=== PATIENT | male | born 1995 | race African-American/Black ===

== ENCOUNTER 2017-06-13 10:58 | Emergency (ER) | payer OTHER ==
[2017-06-13 11:43] VITALS: TEMP 98.3; BMI 20.9
--- NOTE | 2017-06-13 12:08 | PDOC ---
History of Present Illness <Carmel Perry - Last Filed: 06/13/17 14:43> - History of Present Illness Initial Comments: 06/13/17 11:59 21 M with h/o pancreatitis presents to ER with N/V and abdominal pain. Pt states that last night, he ate a burger and had about half a shot of tequila. He subsequently began to feel very ill, with abdominal cramps and nausea. He went to take a cold shower, which he states usually helps. Pt reports that he then began to feel very lightheaded and fainted in the shower, hitting the back of his head against the floor. Pt states that he awoke shortly after and began to vomit. He denies any significant headache or neck pain. Pt states that his symptoms are similar to when he had pancreatitis previously but not as severe. Denies F/C. Denies diarrhea/constipation. Denies CP/SOB/palpitations. <Bimal Leyva - Last Filed: 06/15/17 18:22> - General Chief Complaint: Nausea/Vomiting Stated Complaint: vomiting Time Seen by Provider: 06/13/17 11:41 Past History <Carmel Perry - Last Filed: 06/13/17 14:43> - Past Medical History COPD: No GI Disorders: Yes (gerd, gastritis,gastrophoresis.) - Immunization History Immunization Up to Date: Yes - Suicide/Smoking/Psychosocial Hx Smoking Status: No Smoking History: Never smoked Have you smoked in the past 12 months: No Number of Cigarettes Smoked Daily: 2 Information on smoking cessation initiated: No Hx Alcohol Use: No Drug/Substance Use Hx: No Substance Use Type: None, Marijuana <Bimal Leyva - Last Filed: 06/15/17 18:22> - Past Medical History Allergies/Adverse Reactions: Allergies Allergy/AdvReac Type Severity Reaction Status Date / Time No Known Allergies Allergy Verified 06/13/17 11:43 Home Medications: Ambulatory Orders Esomeprazole Magnesium [Nexium 24Hr] 20 mg PO DAILY #30 capsule. 06/13/17 NK [No Known Home Medication] 06/13/17 Omeprazole 20 mg PO DAILY #30 tablet. 06/13/17 Abd/GI Specific PMHX - Complaint Specific PMHX Colitis: No Diverticulitis: No Gall Bladder Disease: No GERD: No Hepatitis: No Irritable Bowel Synd (IBS): No Pancreatitis: No GI Ulcer Disease: No <Bimal Leyva - Last Filed: 06/15/17 18:22> Review of Systems - Review of Systems Comments:: 06/13/17 12:08 "GENERAL/CONSTITUTIONAL: No fever or chills HEAD, EYES, EARS, NOSE AND THROAT: No change in vision. No ear pain or discharge. No sore throat. CARDIOVASCULAR: No chest pain or shortness of breath. RESPIRATORY: No cough, wheezing, or hemoptysis. GASTROINTESTINAL: + nausea and vomiting, diffuse abdominal cramps, no diarrhea or constipation. GENITOURINARY: No dysuria, frequency, or change in urination. MUSCULOSKELETAL: No joint or muscle swelling or pain. No neck or back pain. SKIN: No rash NEUROLOGIC: No headache, vertigo, or change in strength/sensation. ENDOCRINE: No increased thirst. No abnormal weight change. HEMATOLOGIC/LYMPHATIC: No anemia, easy bleeding, or history of blood clots. ALLERGIC/IMMUNOLOGIC: No hives or skin allergy. " <Bimal Leyva - Last Filed: 06/15/17 18:22> *Physical Exam - Vital Signs Last Vital Signs Temp Pulse Resp BP Pulse Ox 98.3 F 70 18 130/89 100 06/13/17 10:58 06/13/17 10:58 06/13/17 10:58 06/13/17 10:58 06/13/17 10:58 <OrlandoCarmel - Last Filed: 06/13/17 14:43> - Vital Signs Last Vital Signs Temp Pulse Resp BP Pulse Ox 98.3 F 70 18 130/89 100 06/13/17 10:58 06/13/17 10:58 06/13/17 10:58 06/13/17 10:58 06/13/17 10:58 - Physical Exam Comments: 06/13/17 12:10 "GENERAL: Awake, alert, and fully oriented, in no acute distress HEAD: No signs of trauma EYES: PERRLA, EOMI, sclera anicteric, conjunctiva clear ENT: Auricles normal inspection, hearing grossly normal, nares patent, oropharynx clear without exudates. Moist mucosa NECK: Nontender, no stepoffs, Normal ROM, supple, no lymphadenopathy, JVD, or masses LUNGS: Breath sounds equal, clear to auscultation bilaterally. No wheezes, and no crackles HEART: Regular rate and rhythm, normal S1 and S2, no murmurs, rubs or gallops ABDOMEN: +epigastric TTP, No guarding, no rebound. No masses EXTREMITIES: Normal range of motion, no edema. No clubbing or cyanosis. No cords, erythema, or tenderness NEUROLOGICAL: Cranial nerves II through XII intact. 5/5 strength and sensation in all extremities, Normal speech, normal gait SKIN: Warm, Dry, normal turgor, no rashes or lesions noted. " <Bimal Leyva - Last Filed: 06/15/17 18:22> ED Treatment Course - LABORATORY CBC & Chemistry Diagram: 06/13/17 13:19 06/13/17 13:19 - ADDITIONAL ORDERS Additional order review: Laboratory Results 06/13/17 06/13/17 13:19 13:19 Sodium 144 Potassium 3.4 L Chloride 108 H Carbon Dioxide 27 Anion Gap 9 BUN 21 H Creatinine 1.2 Creat Clearance w eGFR > 60 Random Glucose 76 Calcium 9.4 Total Bilirubin 1.6 H D AST 29 ALT 27 Alkaline Phosphatase 65 D Creatine Kinase 914 H Troponin I < 0.02 Total Protein 7.6 Albumin 4.7 Lipase 107 06/13/17 13:19 RBC 4.56 MCV 83.4 MCHC 32.3 RDW 13.7 MPV 10.0 Neutrophils % 77.0 Lymphocytes % 14.0 D Monocytes % 7.4 Eosinophils % 0.8 Basophils % 0.8 - RADIOLOGY Radiograph Interpretation: 06/13/17 14:[address] as reviewed by Dr. Enamorado reports chronic sinusitis. - Medications Given in the ED: ED Medications Discontinued Medications Generic Name Dose Route Start Last Admin Trade Name Freq PRN Reason Stop Dose Admin Al Hydroxide/Mg Hydroxide 30 ml 06/13/17 12:24 06/13/17 13:15 Mylanta Oral Suspension - PO 06/13/17 12:25 30 ml ONCE ONE Administration Famotidine/Sodium Chloride 20 mg in 50 mls @ 100 mls/hr 06/13/17 12:24 13:15 Pepcid 20 Mg Premixed Ivpb - IVPB 06/13/17 12:53 100 mls/hr ONCE ONE Administration Sodium Chloride 1,000 mls @ 1,000 mls/hr 06/13/17 12:24 06/13/17 13:15 Normal Saline - IV 06/13/17 13:23 1,000 mls/hr ASDIR STA Administration Ondansetron HCl 4 mg 06/13/17 12:24 06/13/17 13:15 Zofran Injection IVPB 06/13/17 12:25 4 mg ONCE ONE Administration <Carmel Perry - Last Filed: 06/13/17 14:43> - LABORATORY CBC & Chemistry Diagram: 06/13/17 13:19 06/13/17 13:19 - RADIOLOGY Radiology Studies Ordered: Category Date Time Status HEAD CT WITHOUT CONTRAST [CT] Stat CT Scan 06/13/17 11:52 Ordered <Bimal Leyva - Last Filed: 06/15/17 18:22> Medical Decision Making - Medical Decision Making 06/13/17 12:10 21 M with N/V and epigastric pain, concerning for recurrent pancreatitis. Also consider gastritis vs gastroenteritis. Pt also had syncopal episode, likely vasovagal in the context of vomiting. Pt without symptoms concerning for cardiac syncope. - Labs, lipase - EKG - CTH for headstrike and vomiting 06/13/17 15:53 CBC,CMP WBC 5.6 K/mm3 (4.0-10.0) D 06/13/17 13:19 RBC 4.56 M/mm3 (4.00-5.60) 06/13/17 13:19 Hgb 12.3 GM/dL (11.7-16.9) 06/13/17 13:19 Hct 38.1 % (35.4-49) 06/13/17 13:19 MCV 83.4 fl (80-96) 06/13/17 13:19 MCH 26.9 pg (25.7-33.7) 06/13/17 13:19 MCHC 32.3 g/dl (32.0-35.9) 06/13/17 13:19 RDW 13.7 % (11.9-15.9) 06/13/17 13:19 Plt Count 131 K/MM3 (134-434) L 06/13/17 13:19 MPV 10.0 fl (7.5-11.1) 06/13/17 13:19 Neutrophils % 77.0 % (42.8-82.8) 06/13/17 13:19 Lymphocytes % 14.0 % (8-40) D 06/13/17 13:19 Monocytes % 7.4 % (3.8-10.2) 06/13/17 13:19 Eosinophils % 0.8 % (0-4.5) 06/13/17 13:19 Basophils % 0.8 % (0-2.0) 06/13/17 13:19 Sodium 144 mmol/L (136-145) 06/13/17 13:19 Potassium 3.4 mmol/L (3.5-5.1) L 06/13/17 13:19 Chloride 108 mmol/L (98-107) H 06/13/17 13:19 Carbon Dioxide 27 mmol/L (21-32) 06/13/17 13:19 Anion Gap 9 (8-16) 06/13/17 13:19 BUN 21 mg/dL (7-18) H 06/13/17 13:19 Creatinine 1.2 mg/dL (0.7-1.3) 06/13/17 13:19 Creat Clearance w eGFR > 60 (>60) 06/13/17 13:19 Random Glucose 76 mg/dL (74-106) 06/13/17 13:19 Calcium 9.4 mg/dL (8.5-10.1) 06/13/17 13:19 Total Bilirubin 1.6 mg/dL (0.2-1.0) H D 06/13/17 13:19 AST 29 U/L (15-37) 06/13/17 13:19 ALT 27 U/L (12-78) 06/13/17 13:19 Alkaline Phosphatase 65 U/L (45-117) D 06/13/17 13:19 Creatine Kinase 914 IU/L (39-308) H 06/13/17 13:19 Creatine Kinase Index 0.3 % (0.0-5.0) 06/13/17 13:19 CK-MB (CK-2) 3.351 ng/mL (0.5-3.6) 06/13/17 13:19 Troponin I < 0.02 ng/ml (0.00-0.05) 06/13/17 13:19 Total Protein 7.6 g/dl (6.4-8.2) 06/13/17 13:19 Albumin 4.7 g/dl (3.4-5.0) 06/13/17 13:19 Lipase 107 U/L (73-393) 06/13/17 13:19 Labs unremarkable. Pt reports improvement in pain s/p meds. Denies any nausea or vomiting at this time. Pt with benign abdominal exam. Tolerating PO. Pt well appearing with normal vitals. Clinically stable for DC. I discussed the physical exam findings, ancillary test results and final diagnoses with the patient. I answered all of the patient's questions. The patient was satisfied with the care received and felt comfortable with the discharge plan and treatment plan. The patient agrees to follow up with the primary care physician within 24-72 hours. <Bimal Leyva - Last Filed: 06/15/17 18:22> *DC/Admit/Observation/Transfer - Attestations Scribe Attestion: 06/13/17 14:45 Documentation prepared by Carmel Perry, acting as outside medical sales representative for Bimal Leyva MD. <Carmel Perry - Last Filed: 06/13/17 14:43> - Attestations Physician Attestion: 06/13/17 15:59 I, Dr. Bimal Leyva MD, attest that this document has been prepared under my direction and personally reviewed by me in its entirety. I further attest, that it accurately reflects all work, treatment, procedures and medical decision -making performed by me. <Bimal Leyva - Last Filed: 06/15/17 18:22> Diagnosis at time of Disposition: Acute gastritis - Discharge Dispostion Disposition: HOME Condition at time of disposition: Good - Prescriptions Prescriptions: Esomeprazole Magnesium [Nexium 24Hr] 20 mg PO DAILY #30 capsule. Omeprazole 20 mg PO DAILY #30 tablet.dr - Referrals Referrals: Abhi Fields MD [Primary Care Provider] - Denilson Pearson MD [Staff Physician] - - Patient Instructions Printed Discharge Instructions: DI for Gastritis Additional Instructions: Call the number provided to make an appointment with a acute care occupational therapist. You will need an endoscopy to further evaluate your abdominal pain. 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 Avoid eating spicy, acidic, or greasy foods, as these may worsen your symptoms. If you experience worsening pain, vomiting, or any other concerning symptoms, return to the ER immediately. Otherwise follow up with your primary doctor within 1 week. - Post Discharge Activity
[2017-06-13] MEDS ORDERED: SODIUM CHLORIDE 1,000 ML IV STA (12:24)
[2017-06-13] MEDS ORDERED: FAMOTIDINE 20 MG/50 ML IVPB 20 MG/50 ML MG IVPB ONE ×2 (12:24→12:56)
[2017-06-13] MEDS ORDERED: MAG HYDROX/AL HYDROX/SIMETH 30 ML UNIT-DOSE CUP PO ONE (12:24)
[2017-06-13] MEDS ORDERED: ONDANSETRON 4 MG/2 ML VIAL IVPB ONE (12:24)
[2017-06-13] MEDS ORDERED: MAG HYDROX/AL HYDROX/SIMETH 30 ML UNIT-DOSE CUP ONE ×2 (12:55→12:57)
[2017-06-13] MEDS ORDERED: ONDANSETRON 4 MG/2 ML VIAL ONE (12:55)
[2017-06-13 13:45] LABS: BASO % 0.8 % (0-2.0); EOS % 0.8 % (0-4.5); HEMATOCRIT 38.1 % (35.4-49); HEMOGLOBIN 12.3 GM/dL (11.7-16.9); MCH 26.9 pg (25.7-33.7); MCHC 32.3 g/dl (32.0-35.9); MEAN CELL VOLUME 83.4 fl (80-96); MONO % 7.4 % (3.8-10.2); PLATELET COUNT 131 K/MM3 (134-434); RBC 4.56 M/mm3 (4.00-5.60); RDW 13.7 % (11.9-15.9); WHITE BLOOD COUNT 5.6 K/mm3 (4.0-10.0)
[2017-06-13 14:28] LABS: ALBUMIN 4.7 g/dl (3.4-5.0); ANION GAP 9 (8-16); BLOOD UREA NITROGEN 21 mg/dL (7-18); CALCIUM 9.4 mg/dL (8.5-10.1); CHLORIDE 108 mmol/L (98-107); CO2 27 mmol/L (21-32); CREATININE 1.2 mg/dL (0.7-1.3); GLUCOSE,RANDOM 76 mg/dL (74-106); LIPASE 107 U/L (73-393); POTASSIUM 3.4 mmol/L (3.5-5.1); SGOT/AST 29 U/L (15-37); SGPT/ALT 27 U/L (12-78); SODIUM 144 mmol/L (136-145)
[2017-06-13 14:29] LABS: ALK PHOS 65 U/L (45-117); BILIRUBIN,TOTAL 1.6 mg/dL (0.2-1.0); TOT PROT 7.6 g/dl (6.4-8.2)
[2017-06-13 17:10] VITALS: BP 124/74; PULSE 57
--- NOTE | 2017-06-14 12:38 | EKG ---
Test Reason : Blood Pressure : / mmHG Vent. Rate : 048 BPM Atrial Rate : 048 BPM P-R Int : 166 ms QRS Dur : 086 ms QT Int : 430 ms P-R-T Axes : 045 047 043 degrees QTc Int : 384 ms SINUS BRADYCARDIA NONSPECIFIC ST ABNORMALITY ABNORMAL ECG WHEN COMPARED WITH ECG OF 06-NOV-2013 09:11, NO SIGNIFICANT CHANGE WAS FOUND Confirmed by BENTON METZGER MD ([id number]) on 06/14/2017 12:37:46 PM Referred By: Confirmed By:BENTON METZGER MD
== END 2017-06-13 17:10 | disposition home or self-care (01) ==
LOC: JER 10:58
PROC: 3E033GC Introduction of Other Therapeutic Substance into Peripheral Vein, Percutaneous Approach (ICD-10-PCS; principal; 2017-06-13)
DX: K29.00 Acute gastritis without bleeding (principal)
CPT/HCPCS: 36415; 70450-TC; 80053; 82550; 82553; 83690; 84484; 85025; 93005; 93010; 99283-25

== ENCOUNTER 2017-07-22 23:12 | Emergency (ER) | payer OTHER ==
[2017-07-22 23:23] VITALS: BP 128/76; PULSE 67; TEMP 97.6; BMI 11.4
[2017-07-23] MEDS ORDERED: IBUPROFEN 600 MG TABLET (FP) PO ONE ×2 (00:03→00:26)
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
[2017-07-23 01:54] LABS: URINE APPEARANCE CLOUDY; URINE BILIRUBIN NEGATIVE (NEGATIVE); URINE BLOOD NEGATIVE (NEGATIVE); URINE COLOR YELLOW; URINE GLUCOSE (UA) NEGATIVE (NEGATIVE); URINE KETONE NEGATIVE (NEGATIVE); URINE LEUK ESTERASE 1+ (NEGATIVE); URINE NITRITE NEGATIVE (NEGATIVE); URINE PROTEIN NEGATIVE (NEGATIVE)
[2017-07-23 01:56] LABS: EPI CELLS RARE /HPF (FEW)
== END 2017-07-23 02:14 | disposition home or self-care (01) ==
LOC: JER 23:12
DX: M54.2 Cervicalgia (principal); V43.62XA Car passenger injured in collision with other type car in traffic accident, initial encounter; Y92.488 Other paved roadways as the place of occurrence of the external cause; Y93.89 Activity, other specified; Y99.8 Other external cause status
CPT/HCPCS: 71046-TC-FY; 72125-TC; 73090-TC-RT-FY; 73590-TC-RT-FY; 81003; 81015; 99283-25

== ENCOUNTER 2017-08-31 23:04 | Emergency (ER) | payer OTHER ==
[2017-08-31 23:26] VITALS: BP 109/77; PULSE 74; TEMP 97.8; BMI 26.9
[2017-09-01 00:04] LABS: BASO % 0.9 % (0-2.0); EOS % 4.6 % (0-4.5); HEMATOCRIT 37.3 % (35.4-49); HEMOGLOBIN 12.7 GM/dL (11.7-16.9); LYMPH % 31.6 % (8-40); MCH 28.3 pg (25.7-33.7); MCHC 34.1 g/dl (32.0-35.9); MEAN CELL VOLUME 83.1 fl (80-96); MEAN PLT VOLUME 9.8 fl (7.5-11.1); MONO % 5.5 % (3.8-10.2); NEUT % 57.4 % (42.8-82.8); PLATELET COUNT 136 K/MM3 (134-434); RBC 4.49 M/mm3 (4.00-5.60); RDW 13.4 % (11.9-15.9); WHITE BLOOD COUNT 5.1 K/mm3 (4.0-10.0)
[2017-09-01] MEDS ORDERED: ONDANSETRON 4 MG/2 ML VIAL ONE (00:10)
--- NOTE | 2017-09-01 00:31 | PDOC ---
History of Present Illness - General History Source: Patient Exam Limitations: No Limitations - History of Present Illness Initial Comments: 09/01/17 00:48 The patient is a 22 year old male, with a significant past medical history of gastritis, who presents to the emergency department with, one day of emesis and diarrhea. The patient states that over the past 24 hours he has experienced 6 episodes of vomiting (non bloody, non bilious) and 3 episodes of diarrhea ( denies melena or hematochezia). The patient denies any sick contacts. He denies any recent fevers, chills, headache or dizziness. He denies any recent chest pain or shortness of breath. He denies any recent dysuria, frequency, urgency or hematuria. Allergies: NKA <James Leslie - Last Filed: 09/01/17 00:48> <Amber Monroy - Last Filed: 09/01/17 02:23> - General Chief Complaint: Nausea/Vomiting Stated Complaint: VOMITING Time Seen by Provider: 08/31/17 23:38 Past History <James Leslie - Last Filed: 09/01/17 00:48> - Past Medical History COPD: No GI Disorders: Yes (gerd, gastritis,gastrophoresis.) - Immunization History Immunization Up to Date: Yes - Suicide/Smoking/Psychosocial Hx Smoking Status: No Smoking History: Current every day smoker Have you smoked in the past 12 months: Yes Number of Cigarettes Smoked Daily: 2 Information on smoking cessation initiated: No Hx Alcohol Use: No Drug/Substance Use Hx: Yes (marijuana) Substance Use Type: None, Marijuana <Amber Monroy - Last Filed: 09/01/17 02:23> - Past Medical History Allergies/Adverse Reactions: Allergies Allergy/AdvReac Type Severity Reaction Status Date / Time No Known Allergies Allergy Verified 08/31/17 23:23 Home Medications: Ambulatory Orders Acetaminophen [Tylenol] 650 mg PO PRN 09/01/17 Ondansetron [Zofran Odt -] 4 mg SL TID PRN #12 od.tablet 09/01/17 Abd/GI Specific PMHX - Complaint Specific PMHX Colitis: No Diverticulitis: No Gall Bladder Disease: No GERD: No Hepatitis: No Irritable Bowel Synd (IBS): No Pancreatitis: No GI Ulcer Disease: No <Amber Monroy - Last Filed: 09/01/17 02:23> Review of Systems - Review of Systems Comments:: 09/01/17 00:49 CONSTITUTIONAL: Absent: fever, no chills, no fatigue EYES: Absent: visual changes ENT: Absent: ear pain, no sore throat CARDIOVASCULAR: Absent: chest pain, no palpitations RESPIRATORY: Absent: cough, no SOB GI: Present: +Nausea. +Vomiting. +Diarrhea. Absent: abdominal pain, no constipation GENITOURINARY: Absent: dysuria, no frequency, no hematuria MUSKULOSKELETAL: Absent: back pain, no arthralgia, no myalgia SKIN: Absent: rash NEURO: Absent: headache <James Leslie - Last Filed: 09/01/17 00:48> *Physical Exam - Vital Signs Last Vital Signs Temp Pulse Resp BP Pulse Ox 97.8 F 74 16 109/77 99 08/31/17 23:24 08/31/17 23:24 08/31/17 23:24 08/31/17 23:24 08/31/17 23:24 - Physical Exam Comments: 09/01/17 00:49 GENERAL: Well-appearing, well-nourished. No apparent distress. HEENT: +Nasal congestion. Normocephalic, atraumatic. PERRL, EOM intact. CARDIOVASCULAR: Normal S1, S2. Regular rate and rhythm. PULMONARY: Clear to auscultation bilaterally. ABDOMEN: Soft, non-distended, non-tender. No rebound or guarding. EXTREMITIES: Normal ROM in all four extremities. No gross deformities. SKIN: Warm, dry. No rash NEUROLOGICAL: No focal neurological deficits. <James Leslie - Last Filed: 09/01/17 00:48> - Vital Signs Last Vital Signs Temp Pulse Resp BP Pulse Ox 97.8 F 74 16 109/77 99 08/31/17 23:24 08/31/17 23:24 08/31/17 23:24 08/31/17 23:24 08/31/17 23:24 <Amber Monroy - Last Filed: 09/01/17 02:23> ED Treatment Course - LABORATORY CBC & Chemistry Diagram: 08/31/17 23:59 08/31/17 23:59 - ADDITIONAL ORDERS Additional order review: 08/31/17 23:59 RBC 4.49 MCV 83.1 MCHC 34.1 RDW 13.4 MPV 9.8 Neutrophils % 57.4 D Lymphocytes % 31.6 D Monocytes % 5.5 Eosinophils % 4.6 H D Basophils % 0.9 <James Leslie - Last Filed: 09/01/17 00:48> - LABORATORY CBC & Chemistry Diagram: 08/31/17 23:59 08/31/17 23:59 - ADDITIONAL ORDERS Additional order review: 08/31/17 23:59 RBC 4.49 MCV 83.1 MCHC 34.1 RDW 13.4 MPV 9.8 Neutrophils % 57.4 D Lymphocytes % 31.6 D Monocytes % 5.5 Eosinophils % 4.6 H D Basophils % 0.9 <Amber Monroy - Last Filed: 09/01/17 02:23> Medical Decision Making - Medical Decision Making 09/01/17 02:21 22-year-old male with epigastric discomfort, nausea and vomiting. He does NOT have any focal abdominal tenderness -pt symptoms improved after zofran and IVF <Amber Monroy - Last Filed: 09/01/17 02:23> *DC/Admit/Observation/Transfer - Attestations Scribe Attestion: 09/01/17 00:50 Documentation prepared by James Leslie, acting as medical i d sales for Amber Monroy MD. <James Leslie - Last Filed: 09/01/17 00:48> <Amber Monroy - Last Filed: 09/01/17 02:23> Diagnosis at time of Disposition: Vomiting and diarrhea - Discharge Dispostion Disposition: HOME Condition at time of disposition: Stable - Prescriptions Prescriptions: Ondansetron [Zofran Odt -] 4 mg SL TID PRN #12 od.tablet PRN Reason: Nausea And/Or Vomiting - Patient Instructions Printed Discharge Instructions: DI for Viral Gastroenteritis -- Adult Additional Instructions: please advance your diet as tolerated city superintendent your medication at your pharmacy return for any worsening symptoms
[2017-09-01 00:43] LABS: ALBUMIN 4.5 g/dl (3.4-5.0); ALK PHOS 67 U/L (45-117); ANION GAP 12 (8-16); BILIRUBIN,TOTAL 1.3 mg/dL (0.2-1.0); BLOOD UREA NITROGEN 18 mg/dL (7-18); CALCIUM 9.2 mg/dL (8.5-10.1); CHLORIDE 104 mmol/L (98-107); CO2 25 mmol/L (21-32); CREATININE 1.2 mg/dL (0.7-1.3); GLUCOSE,RANDOM 83 mg/dL (74-106); POTASSIUM 3.4 mmol/L (3.5-5.1); SGOT/AST 28 U/L (15-37); SGPT/ALT 30 U/L (12-78); SODIUM 141 mmol/L (136-145); TOT PROT 7.5 g/dl (6.4-8.2)
[2017-09-01 00:48] LABS: LIPASE 238 U/L (73-393)
== END 2017-09-01 01:09 | disposition home or self-care (01) ==
LOC: JER 23:04
DX: A08.4 Viral intestinal infection, unspecified (principal); B97.89 Other viral agents as the cause of diseases classified elsewhere
CPT/HCPCS: 36415; 80053; 83690; 85025; 99282-25

== ENCOUNTER 2017-09-03 19:16 | Emergency (ER) | payer OTHER ==
[2017-09-03 19:21] VITALS: BMI 23.7
--- NOTE | 2017-09-03 20:01 | PDOC ---
History of Present Illness - General Chief Complaint: Nausea/Vomiting Stated Complaint: PAIN Time Seen by Provider: 09/03/17 19:42 History Source: Patient Exam Limitations: No Limitations - History of Present Illness Travel History: No Initial Comments: 09/04/17 03:28 Best Contact: Pmhx:Asthma/never intubated/admitted, gastritis Pshx: Endoscopy 2014, right forearm tendon repair 2014, left patellar tendon repair 2011 Allergies: NKDA 22-year-old male presents to the emergency department complaining of nausea, vomiting since approximately 10 AM this morning after having crackers. Patient denies bilious up blood he vomited. There are no alleviating factors. Symptoms are also not exacerbating. Patient denies fever, chills, headache/dizziness/ lightheadedness, facial pains, neck pain/stiffness, back pains, chest pain, shortness of breath, abdominal pains, flank pains, urinary symptoms: Frequency/ urgency/hesitancy, hematuria. Timing/Duration: reports: intermittent Past History - Past Medical History Allergies/Adverse Reactions: Allergies Allergy/AdvReac Type Severity Reaction Status Date / Time No Known Allergies Allergy Verified 09/03/17 19:18 Home Medications: Ambulatory Orders Ciprofloxacin [Cipro -] 500 mg PO Q12H #20 tablet 09/04/17 metroNIDAZOLE [Flagyl -] 500 mg PO DAILY #10 tablet 09/04/17 COPD: No GI Disorders: Yes (gerd, gastritis,gastrophoresis.) - Immunization History Immunization Up to Date: Yes - Suicide/Smoking/Psychosocial Hx Smoking Status: No Smoking History: Current every day smoker Have you smoked in the past 12 months: Yes Number of Cigarettes Smoked Daily: 3 Information on smoking cessation initiated: No Hx Alcohol Use: No Drug/Substance Use Hx: No Substance Use Type: None, Marijuana Abd/GI Specific PMHX - Complaint Specific PMHX Colitis: No Diverticulitis: No Gall Bladder Disease: No GERD: No Hepatitis: No Irritable Bowel Synd (IBS): No Pancreatitis: No GI Ulcer Disease: No Review of Systems - Review of Systems Able to Perform ROS?: Yes Comments:: 09/04/17 03:32 CONSTITUTIONAL: Absent: fever, chills, diaphoresis, generalized weakness, malaise, loss of appetite HEENT: Absent: rhinorrhea, nasal congestion, throat pain, throat swelling, difficulty swallowing, mouth swelling, ear pain, eye pain, visual Changes CARDIOVASCULAR: Absent: chest pain, loss of consciousness, palpitations, irregular heart rate, peripheral edema RESPIRATORY: Absent: cough, shortness of breath, dyspnea with exertion, orthopnea, wheezing, stridor, hemoptysis GASTROINTESTINAL: +n/V Absent: abdominal pain, abdominal distension, diarrhea, constipation, melena, hematochezia GENITOURINARY: Absent: dysuria, frequency, urgency, hesitancy, hematuria, flank pain, genital pain MUSCULOSKELETAL: Absent: myalgia, arthralgia, joint swelling SKIN: Absent: rash, itching, pallor Is the patient limited Spanish proficient: No *Physical Exam - Vital Signs Last Vital Signs Temp Pulse Resp BP Pulse Ox 75 18 129/71 100 09/03/17 19:17 09/03/17 19:17 09/03/17 19:17 09/03/17 19:17 - Physical Exam Comments: 09/04/17 03:32 GENERAL: Well developed, well nourished. Awake and alert. No acute distress. HEENT: Normocephalic, atraumatic. PERRLA, EOMI. No conjunctival pallor. Sclera are non- icteric. Moist mucous membranes. Oropharynx is clear. NECK: Supple. Full ROM. No JVD. Carotid pulses 2+ and symmetric, without bruits. No thyromegaly. No lymphadenopathy. CARDIOVASCULAR: Regular rate and rhythm. No murmurs, rubs, or gallops. Distal pulses are 2+ and symmetric. PULMONARY: No evidence of respiratory distress. Lungs clear to auscultation bilaterally. No wheezing, rales or rhonchi. ABDOMINAL: Soft. Non-tender. Non-distended. No rebound or guarding. No organomegaly. Normoactive bowel sounds. MUSCULOSKELETAL Normal range of motion at all joints. No bony deformities or tenderness. No CVA tenderness. EXTREMITIES: No cyanosis. No clubbing. No edema. No calf tenderness. SKIN: Warm and dry. Normal capillary refill. No rashes. No jaundice. ED Treatment Course - LABORATORY CBC & Chemistry Diagram: 09/03/17 20:00 09/03/17 21:11 - RADIOLOGY Radiograph Interpretation: 09/04/17 03:32 CAT scan abdomen and pelvis with by mouth and IV contrast Impression: No evidence of bowel obstruction or acute appendicitis Circumferentially prominent wall in the sigmoid colon and rectum could be secondary to under distention and/for a mild inflammatory or infectious proctocolitis. Apparent circumferential wall thickening in the urinary bladder may be attributed to some combination of underdistention and/or cystitis *DC/Admit/Observation/Transfer Diagnosis at time of Disposition: Proctitis - Discharge Dispostion Disposition: HOME Condition at time of disposition: Stable Admit: No - Prescriptions Prescriptions: Ciprofloxacin [Cipro -] 500 mg PO Q12H #20 tablet metroNIDAZOLE [Flagyl -] 500 mg PO DAILY #10 tablet - Referrals Referrals: Abhi Fields MD [Primary Care Provider] - Micheal Samuel MD [Staff Physician] - Uriel Cooney MD [Staff Physician] - - Patient Instructions Additional Instructions: It is very important that you follow up with the coater hand and urologist. Review do not have one, I have listed 1 of each specialist on your discharge sheet Take the antibiotics until completion as prescribed Return back to the emergency department for severe/persistent or worsening symptoms - Post Discharge Activity
[2017-09-03] MEDS ORDERED: SODIUM CHLORIDE 1,000 ML IV STA (20:02)
--- NOTE | 2017-09-03 20:13 | PDOC ---
*Physical Exam - Vital Signs Last Vital Signs Temp Pulse Resp BP Pulse Ox 75 18 129/71 100 09/03/17 19:17 09/03/17 19:17 09/03/17 19:17 09/03/17 19:17 Medical Decision Making - Medical Decision Making 09/03/17 20:13 Pt seen by the Advanced Practice Provider under my direct supervision Ancillary studies reviewed I agree with plan as outlined by the Advanced Practice Provider LANCE Turpin *DC/Admit/Observation/Transfer - Referrals Referrals: Abhi Fields MD [Primary Care Provider] - - Patient Instructions - Post Discharge Activity
[2017-09-03 20:24] LABS: BASO % 0.5 % (0-2.0); HEMATOCRIT 38.9 % (35.4-49); HEMOGLOBIN 13.2 GM/dL (11.7-16.9); LYMPH % 29.8 % (8-40); MCH 28.2 pg (25.7-33.7); MCHC 33.9 g/dl (32.0-35.9); MEAN CELL VOLUME 83.3 fl (80-96); MEAN PLT VOLUME 10.2 fl (7.5-11.1); MONO % 6.5 % (3.8-10.2); NEUT % 61.2 % (42.8-82.8); PLATELET COUNT 158 K/MM3 (134-434); RBC 4.67 M/mm3 (4.00-5.60); RDW 13.2 % (11.9-15.9); WHITE BLOOD COUNT 6.1 K/mm3 (4.0-10.0)
[2017-09-03 20:48] LABS: AMYLASE 132 U/L (25-115); LIPASE 178 U/L (73-393)
[2017-09-03] MEDS ORDERED: ONDANSETRON 4 MG/2 ML VIAL IVPUSH ONE (21:48)
[2017-09-03 21:49] LABS: ALBUMIN 4.3 g/dl (3.4-5.0); ALK PHOS 63 U/L (45-117); ANION GAP 5 (8-16); BILIRUBIN,TOTAL 1.1 mg/dL (0.2-1.0); BLOOD UREA NITROGEN 17 mg/dL (7-18); CALCIUM 8.6 mg/dL (8.5-10.1); CHLORIDE 109 mmol/L (98-107); CO2 28 mmol/L (21-32); CREATININE 1.3 mg/dL (0.7-1.3); GLUCOSE,RANDOM 76 mg/dL (74-106); POTASSIUM 3.4 mmol/L (3.5-5.1); SGOT/AST 24 U/L (15-37); SGPT/ALT 24 U/L (12-78); SODIUM 142 mmol/L (136-145); TOT PROT 7.1 g/dl (6.4-8.2)
[2017-09-03] MEDS ORDERED: ONDANSETRON 4 MG/2 ML VIAL ONE ×2 (21:49→22:27)
[2017-09-03] MEDS ORDERED: morphine CARPU-JECT 4 MG/1 ML DISP.SYRIN IVPUSH ONE (22:25)
[2017-09-03] MEDS ORDERED: ONDANSETRON 4 MG/2 ML VIAL IVPB ONE (22:25)
[2017-09-03] MEDS ORDERED: MORPHINE SULFATE 10 MG/1 ML *VIAL ONE (22:26)
[2017-09-04 00:43] VITALS: BP 138/79; PULSE 70
[2017-09-04 00:44] LABS: URINE APPEARANCE CLEAR; URINE COLOR STRAW
[2017-09-04 00:45] LABS: URINE BILIRUBIN NEGATIVE (<2.0 mg/dL); URINE BLOOD NEGATIVE (NEGATIVE); URINE GLUCOSE (UA) NEGATIVE (NEGATIVE); URINE KETONE TRACE (NEGATIVE)
[2017-09-04 00:46] LABS: URINE LEUK ESTERASE 2+ (NEGATIVE); URINE NITRITE NEGATIVE (NEGATIVE); URINE PROTEIN NEGATIVE (NEGATIVE); URINE UROBILINOGEN NORMAL mg/dL (0.2-1.0)
[2017-09-04 00:47] LABS: EPI CELLS RARE /HPF (FEW); URINE MUCUS RARE
[2017-09-04] MEDS ORDERED: CIPROFLOXACIN 500 MG TABLET (RESTRICTED TO ID) PO ONE (01:02)
[2017-09-04] MEDS ORDERED: metroNIDAZOLE 250 MG TABLET ONE (01:28)
[2017-09-04] MEDS ORDERED: metroNIDAZOLE 250 MG TABLET PO ONE (01:35)
== END 2017-09-04 01:33 | disposition home or self-care (01) ==
LOC: JER 19:16
PROC: 3E0337Z Introduction of Electrolytic and Water Balance Substance into Peripheral Vein, Percutaneous Approach (ICD-10-PCS; principal; 2017-09-03)
PROC: 3E033GC Introduction of Other Therapeutic Substance into Peripheral Vein, Percutaneous Approach (ICD-10-PCS; 2017-09-03)
PROC: 3E033NZ Introduction of Analgesics, Hypnotics, Sedatives into Peripheral Vein, Percutaneous Approach (ICD-10-PCS; 2017-09-03)
PROC: 3E033GC Introduction of Other Therapeutic Substance into Peripheral Vein, Percutaneous Approach (ICD-10-PCS; 2017-09-03)
DX: K62.89 Other specified diseases of anus and rectum (principal); Z87.19 Personal history of other diseases of the digestive system
CPT/HCPCS: 36415; 74177-TC; 80053; 81003; 81015; 82150; 83690; 85025; 87086; 99283-25; J7030

== ENCOUNTER 2021-08-29 14:26 | Emergency (ER) | payer OTHER ==
[2021-08-29 14:52] VITALS: TEMP 97.1; BMI 25.1
[2021-08-29] MEDS ORDERED: FAMOTIDINE 20 MG/50 ML IVPB 20 MG/50 ML MG IVPB ONE ×2 (15:24→15:34)
[2021-08-29] MEDS ORDERED: ONDANSETRON 4 MG/2 ML VIAL IVPUSH ONE (15:24)
[2021-08-29] MEDS ORDERED: ACETAMINOPHEN 1000 MG/100 ML BAG IVPB ONE (15:24)
[2021-08-29] MEDS ORDERED: SODIUM CHLORIDE 1,000 ML IV STA (15:24)
[2021-08-29] MEDS ORDERED: ACETAMINOPHEN INJECTION 100 ML IVPB ONE (15:33)
[2021-08-29] MEDS ORDERED: ONDANSETRON 4 MG/2 ML VIAL ONE (15:33)
[2021-08-29] MEDS ORDERED: LORazepam 1 MG TABLET PO ONE (16:04)
[2021-08-29] MEDS ORDERED: LORazepam 1 MG TABLET ONE (16:07)
[2021-08-29] MEDS ORDERED: METOCLOPRAMIDE HCL INJECTION 10 MG/2 ML VIAL IVPUSH ONE (16:22)
[2021-08-29 16:54] LABS: BASO % 0.3 % (0-2.0); EOS % 1.1 % (0-4.5); HEMATOCRIT 36.1 % (35.4-49); HEMOGLOBIN 12.2 GM/dL (11.7-16.9); LYMPH % 16.2 % (8-40); MCH 27.5 pg (25.7-33.7); MCHC 33.8 g/dl (32.0-35.9); MEAN CELL VOLUME 81.4 fl (80-96); MEAN PLT VOLUME 9.9 fl (7.5-11.1); MONO % 6.3 % (3.8-10.2); NEUT % 76.1 % (42.8-82.8); PLATELET COUNT 149 10^3/uL (134-434); RBC 4.43 M/mm3 (4.00-5.60); RDW 13.1 % (11.9-15.9); WHITE BLOOD COUNT 4.2 K/mm3 (4.0-10.0)
[2021-08-29 16:57] LABS: EPI CELLS 21 /uL (0-25.1); HYALINE CASTS 1 /uL (0-3.1); PH,URINE 5.5 (5.0-8.0); URINE APPEARANCE CLEAR; URINE BACTERIA 873 /uL (0-1359); URINE BILIRUBIN NEGATIVE (NEGATIVE); URINE COLOR YELLOW; URINE GLUCOSE (UA) NEGATIVE (NEGATIVE); URINE KETONE 1+ (NEGATIVE); URINE LEUK ESTERASE 2+ (NEGATIVE); URINE NITRITE NEGATIVE (NEGATIVE); URINE PROTEIN 1+ (NEGATIVE); URINE RBC 4 /uL (0-23.9); URINE WBC 186 /uL (0-25.8)
[2021-08-29 16:59] LABS: INR 1.14 (0.83-1.09); PROTHROMBIN TIME (PATIENT) 13.1 SEC (9.7-13.0)
[2021-08-29] MEDS ORDERED: METOCLOPRAMIDE HCL INJECTION 10 MG/2 ML VIAL ONE (17:01)
[2021-08-29 17:19] LABS: ALBUMIN 4.7 g/dl (3.4-5.0); BLOOD UREA NITROGEN 19.5 mg/dL (7-18); CALCIUM 9.8 mg/dL (8.5-10.1)
[2021-08-29 17:21] LABS: CREATININE 1.6 mg/dL (0.55-1.3)
[2021-08-29 17:23] LABS: BILIRUBIN,TOTAL 1.2 mg/dL (0.2-1)
[2021-08-29 18:11] VITALS: BP 122/78; PULSE 69
== END 2021-08-29 19:00 | disposition home or self-care (01) ==
LOC: JER 14:26
PROC: 3E033GC Introduction of Other Therapeutic Substance into Peripheral Vein, Percutaneous Approach (ICD-10-PCS; principal; 2021-08-29)
DX: R11.2 Nausea with vomiting, unspecified (principal)
CPT/HCPCS: 36415; 80053; 81003; 83690; 85025; 85610; 87086; 99284-25

== ENCOUNTER 2022-03-12 08:41 | Emergency (ER) | payer OTHER ==
[2022-03-12 08:55] VITALS: BMI 23.0
[2022-03-12] MEDS ORDERED: ONDANSETRON 4 MG/2 ML VIAL IVPUSH ONE (09:28)
[2022-03-12] MEDS ORDERED: ACETAMINOPHEN 1000 MG/100 ML BAG IVPB ONE (09:28)
[2022-03-12] MEDS ORDERED: SODIUM CHLORIDE 0.9% 500 ML INFUS.BAG IV ONE ×3 (09:28→13:20)
[2022-03-12] MEDS ORDERED: FAMOTIDINE 20 MG/50 ML IVPB 20 MG/50 ML MG IVPB ONE ×2 (09:28→09:57)
[2022-03-12] MEDS ORDERED: ACETAMINOPHEN INJECTION 100 ML IVPB ONE (09:56)
[2022-03-12] MEDS ORDERED: ONDANSETRON 4 MG/2 ML VIAL ONE (09:57)
[2022-03-12] MEDS ORDERED: LORazepam 2 MG/ML SDV VIAL IVPUSH ONE (10:17)
[2022-03-12] MEDS ORDERED: HALOPERIDOL LACTATE 5 MG/ML IM ONE ×2 (10:17→11:05)
[2022-03-12 11:29] LABS: BASO % 0.9 % (0-2.0); EOS % 3.5 % (0-4.5); HEMOGLOBIN 11.6 GM/dL (11.7-16.9); LYMPH % 35.3 % (8-40); MCH 27.2 pg (25.7-33.7); MCHC 33.1 g/dl (32.0-35.9); MEAN CELL VOLUME 82.1 fl (80-96); MEAN PLT VOLUME 9.3 fl (7.5-11.1); MONO % 5.3 % (3.8-10.2); PLATELET COUNT 158 10^3/uL (134-434); RBC 4.26 M/mm3 (4.00-5.60); RDW 13.5 % (11.9-15.9); WHITE BLOOD COUNT 4.4 K/mm3 (4.0-10.0)
[2022-03-12 11:55] LABS: CALCIUM 9.3 mg/dL (8.5-10.1)
[2022-03-12 11:56] LABS: ALBUMIN 4.4 g/dl (3.4-5.0); BLOOD UREA NITROGEN 23.7 mg/dL (7-18)
[2022-03-12 11:59] LABS: CREATININE 1.7 mg/dL (0.55-1.3)
[2022-03-12 12:00] LABS: TOT PROT 7.8 g/dl (6.4-8.2)
[2022-03-12 12:01] LABS: BILIRUBIN,TOTAL 0.9 mg/dL (0.2-1)
[2022-03-12 13:22] LABS: PH,URINE 5.5 (5.0-8.0); URINE APPEARANCE CLEAR; URINE BILIRUBIN NEGATIVE (NEGATIVE); URINE COLOR YELLOW; URINE GLUCOSE (UA) NEGATIVE (NEGATIVE); URINE KETONE NEGATIVE (NEGATIVE); URINE PROTEIN NEGATIVE (NEGATIVE)
[2022-03-12 13:23] LABS: EPI CELLS 15 /uL (0-25.1); HYALINE CASTS 1 /uL (0-3.1); URINE BACTERIA 355 /uL (0-1359); URINE LEUK ESTERASE NEGATIVE (NEGATIVE); URINE NITRITE NEGATIVE (NEGATIVE); URINE RBC 2 /uL (0-23.9); URINE UROBILINOGEN 0.2 mg/dL (0.2-1.0); URINE WBC 188 /uL (0-25.8)
[2022-03-12 15:11] LABS: CALCIUM 8.7 mg/dL (8.5-10.1)
[2022-03-12 15:12] LABS: BLOOD UREA NITROGEN 20.8 mg/dL (7-18)
[2022-03-12 15:15] LABS: CREATININE 1.6 mg/dL (0.55-1.3)
[2022-03-12 16:15] VITALS: BP 130/90; PULSE 60; RESP 16; TEMP 97.7
== END 2022-03-12 15:30 | disposition home or self-care (01) ==
LOC: JER 08:41
PROC: 3E023NZ Introduction of Analgesics, Hypnotics, Sedatives into Muscle, Percutaneous Approach (ICD-10-PCS; principal; 2022-03-12)
PROC: 3E033GC Introduction of Other Therapeutic Substance into Peripheral Vein, Percutaneous Approach (ICD-10-PCS; 2022-03-12)
PROC: 3E033GC Introduction of Other Therapeutic Substance into Peripheral Vein, Percutaneous Approach (ICD-10-PCS; 2022-03-12)
PROC: 3E033GC Introduction of Other Therapeutic Substance into Peripheral Vein, Percutaneous Approach (ICD-10-PCS; 2022-03-12)
PROC: 3E033GC Introduction of Other Therapeutic Substance into Peripheral Vein, Percutaneous Approach (ICD-10-PCS; 2022-03-12)
DX: R11.2 Nausea with vomiting, unspecified (principal)
CPT/HCPCS: 0241U-QW; 36415; 71045-TC-FY; 80048; 80053; 81003; 83690; 85025; 87086; 93005; 93010; 99285-25

== ENCOUNTER 2023-06-30 18:38 | Emergency (ER) | payer OTHER ==
[2023-06-30 18:47] VITALS: BP 113/72; PULSE 80; RESP 20; BMI 22.3
[2023-06-30 19:09] LABS: EPI CELLS >36 /uL (0-25.1); HYALINE CASTS 0 /uL (0-3.1); PH,URINE 5.5 (5.0-8.0); URINE APPEARANCE CLEAR; URINE BACTERIA 333 /uL (0-1359); URINE BILIRUBIN NEGATIVE (NEGATIVE); URINE COLOR YELLOW; URINE GLUCOSE (UA) NEGATIVE (NEGATIVE); URINE KETONE TRACE (NEGATIVE); URINE LEUK ESTERASE 1+ (NEGATIVE); URINE NITRITE NEGATIVE (NEGATIVE); URINE PROTEIN 1+ (NEGATIVE); URINE RBC 7 /uL (0-23.9); URINE WBC 97 /uL (0-25.8)
[2023-06-30] MEDS ORDERED: METOCLOPRAMIDE HCL INJECTION 10 MG/2 ML VIAL IVPUSH ONE (19:34)
[2023-06-30] MEDS ORDERED: LACTATED RINGERS SOLUTION 1000 ML INFUS.BAG IV ONE (19:34)
[2023-06-30] MEDS ORDERED: ACETAMINOPHEN 1000 MG/100 ML BAG IVPB ONE (19:34)
[2023-06-30] MEDS ORDERED: FAMOTIDINE 20 MG/50 ML IVPB 20 MG/50 ML MG IVPB ONE ×2 (19:40→19:51)
[2023-06-30] MEDS ORDERED: ACETAMINOPHEN INJECTION 100 ML IVPB ONE (19:50)
[2023-06-30] MEDS ORDERED: METOCLOPRAMIDE HCL INJECTION 10 MG/2 ML VIAL ONE (19:50)
[2023-06-30 20:22] LABS: BASO % 0.3 % (0-2.0); EOS % 0.5 % (0-4.5); HEMATOCRIT 34.2 % (35.4-49); HEMOGLOBIN 11.5 GM/dL (11.7-16.9); LYMPH % 10.9 % (8-40); MCH 27.5 pg (25.7-33.7); MCHC 33.6 g/dl (32.0-35.9); MEAN CELL VOLUME 81.9 fl (80-96); MEAN PLT VOLUME 8.6 fl (7.5-11.1); NEUT % 77.3 % (42.8-82.8); PLATELET COUNT 140 10^3/uL (134-434); RBC 4.18 M/mm3 (4.00-5.60); RDW 13.2 % (11.9-15.9); WHITE BLOOD COUNT 4.9 K/mm3 (4.0-10.0)
[2023-06-30 20:40] LABS: POTASSIUM 3.5 mmol/L (3.5-5.1)
[2023-06-30 20:42] LABS: ALBUMIN 4.2 g/dl (3.4-5.0); BLOOD UREA NITROGEN 15.8 mg/dL (7-18); MAGNESIUM 1.9 mg/dL (1.8-2.4)
[2023-06-30 20:45] LABS: CREATININE 2.1 mg/dL (0.55-1.3)
[2023-06-30 20:47] LABS: BILIRUBIN,TOTAL 0.7 mg/dL (0.2-1)
[2023-06-30 22:06] VITALS: TEMP 99.7
[2023-06-30 22:11] LABS: EPI CELLS 9 /uL (0-25.1); HYALINE CASTS 1 /uL (0-3.1); PH,URINE 5.5 (5.0-8.0); URINE APPEARANCE CLEAR; URINE BACTERIA 96 /uL (0-1359); URINE BILIRUBIN NEGATIVE (NEGATIVE); URINE COLOR YELLOW; URINE GLUCOSE (UA) NEGATIVE (NEGATIVE); URINE KETONE TRACE (NEGATIVE); URINE LEUK ESTERASE NEGATIVE (NEGATIVE); URINE NITRITE NEGATIVE (NEGATIVE); URINE PROTEIN 1+ (NEGATIVE); URINE RBC 8 /uL (0-23.9); URINE WBC 25 /uL (0-25.8)
== END 2023-06-30 22:21 | disposition home or self-care (01) ==
LOC: JER 18:38
PROC: 3E033GC Introduction of Other Therapeutic Substance into Peripheral Vein, Percutaneous Approach (ICD-10-PCS; principal; 2023-06-30)
PROC: 3E033GC Introduction of Other Therapeutic Substance into Peripheral Vein, Percutaneous Approach (ICD-10-PCS; 2023-06-30)
PROC: 3E033GC Introduction of Other Therapeutic Substance into Peripheral Vein, Percutaneous Approach (ICD-10-PCS; 2023-06-30)
DX: R11.2 Nausea with vomiting, unspecified (principal); R50.9 Fever, unspecified; R53.1 Weakness; J11.1 Influenza due to unidentified influenza virus with other respiratory manifestations; Z20.822 Contact with and (suspected) exposure to COVID-19
CPT/HCPCS: 0241U-QW; 36415; 80053; 81003; 83735; 85025; 87086; 87491; 87591; 87661; 99284-25

== ENCOUNTER 2023-11-08 01:21 | Emergency (ER) | payer OTHER ==
[2023-11-08 01:26] VITALS: BP 115/69; PULSE 107; RESP 18; TEMP 98.7; BMI 22.0
[2023-11-08] MEDS ORDERED: HALOPERIDOL LACTATE 5 MG/ML ONE (02:13)
[2023-11-08] MEDS ORDERED: ACETAMINOPHEN INJECTION 100 ML IVPB ONE (02:13)
[2023-11-08] MEDS ORDERED: FAMOTIDINE 20 MG/50 ML IVPB 20 MG/50 ML MG IVPB ONE (02:13)
[2023-11-08] MEDS: ACETAMINOPHEN 1000 MG/100 ML BAG IVPB ONE (02:36)
[2023-11-08] MEDS: HALOPERIDOL LACTATE 5 MG/ML IVPUSH ONE (02:36)
[2023-11-08] MEDS: ONDANSETRON 4 MG/2 ML VIAL IVPUSH ONE (02:36)
[2023-11-08] MEDS: FAMOTIDINE 20 MG/50 ML IVPB 20 MG/50 ML MG IVPB ONE (02:36)
[2023-11-08] MEDS: SODIUM CHLORIDE 0.9% 500 ML INFUS.BAG IV ONE (02:36)
[2023-11-08 02:38] LABS: BASO % 0.4 % (0-2.0); EOS % 1.4 % (0-4.5); HEMATOCRIT 32.5 % (35.4-49); LYMPH % 23.2 % (8-40); MCH 27.8 pg (25.7-33.7); MCHC 33.8 g/dl (32.0-35.9); MEAN CELL VOLUME 82.2 fl (80-96); MEAN PLT VOLUME 8.9 fl (7.5-11.1); MONO % 5.8 % (3.8-10.2); NEUT % 69.2 % (42.8-82.8); PLATELET COUNT 145 10^3/uL (134-434); RBC 3.95 M/mm3 (4.00-5.60); RDW 13.4 % (11.9-15.9); WHITE BLOOD COUNT 7.6 K/mm3 (4.0-10.0)
[2023-11-08 02:41] LABS: EPI CELLS 16 /uL (0-25.1); HYALINE CASTS 1 /uL (0-3.1); PH,URINE 5.5 (5.0-8.0); URINE APPEARANCE CLEAR; URINE BACTERIA 362 /uL (0-1359); URINE BILIRUBIN NEGATIVE (NEGATIVE); URINE COLOR YELLOW; URINE GLUCOSE (UA) NEGATIVE (NEGATIVE); URINE KETONE NEGATIVE (NEGATIVE); URINE LEUK ESTERASE 2+ (NEGATIVE); URINE NITRITE NEGATIVE (NEGATIVE); URINE PROTEIN TRACE (NEGATIVE); URINE RBC 11 /uL (0-23.9); URINE UROBILINOGEN 0.2 mg/dL (0.2-1.0); URINE WBC 157 /uL (0-25.8)
[2023-11-08 03:13] LABS: ALBUMIN 4.5 g/dl (3.4-5.0); BLOOD UREA NITROGEN 30.8 mg/dL (7-18); MAGNESIUM 1.8 mg/dL (1.8-2.4)
[2023-11-08 03:15] LABS: CREATININE 2.5 mg/dL (0.55-1.3)
[2023-11-08 03:17] LABS: BILIRUBIN,TOTAL 0.8 mg/dL (0.2-1); TOT PROT 7.9 g/dl (6.4-8.2)
== END 2023-11-08 02:56 | disposition left against medical advice (07) ==
LOC: JER 01:21
PROC: 3E033GC Introduction of Other Therapeutic Substance into Peripheral Vein, Percutaneous Approach (ICD-10-PCS; principal; 2023-11-08)
PROC: 3E033NZ Introduction of Analgesics, Hypnotics, Sedatives into Peripheral Vein, Percutaneous Approach (ICD-10-PCS; 2023-11-08)
PROC: 3E033GC Introduction of Other Therapeutic Substance into Peripheral Vein, Percutaneous Approach (ICD-10-PCS; 2023-11-08)
DX: R11.2 Nausea with vomiting, unspecified (principal); R10.11 Right upper quadrant pain; R10.13 Epigastric pain
CPT/HCPCS: 36415; 80053; 81003; 83690; 83735; 85025; 87086; 93005; 93010; 99284-25; J0131

== ENCOUNTER 2024-07-25 09:53 | Emergency (ER) | payer OTHER ==
[2024-07-25] MEDS ORDERED: HALOPERIDOL LACTATE 5 MG/ML ONE (10:49)
[2024-07-25] MEDS: HALOPERIDOL LACTATE 5 MG/ML IM ONE (11:00)
[2024-07-25 13:01] VITALS: BP 108/73; PULSE 78; RESP 18; TEMP 98.6; BMI 24.3
== END 2024-07-25 16:48 | disposition home or self-care (01) ==
LOC: JER 09:53
PROC: 3E033GC Introduction of Other Therapeutic Substance into Peripheral Vein, Percutaneous Approach (ICD-10-PCS; principal; 2024-07-25)
DX: R11.2 Nausea with vomiting, unspecified (principal); R19.7 Diarrhea, unspecified; R10.9 Unspecified abdominal pain; F12.90 Cannabis use, unspecified, uncomplicated
CPT/HCPCS: 99284-25